=== PATIENT | female | born 1945 | race Caucasian/White ===

== ENCOUNTER 2018-04-22 06:54 | Day surgery (SDC) | payer MEDICARE, OTHER ==
--- NOTE | 2018-04-21 09:34 | HP ---
HISTORY OF PRESENT ILLNESS: The patient is a 72-year-old female who has a 1.5 year history of proble ms with her left knee, which developed after falling while carrying a pot and tripping over a water h ose. She has pain with walking and swelling and difficulty with activities. She has had persistent symptoms despite rest, restriction of activities, anti-inflammatory medications and 2 previous inject ions. The pain is now interfering with day-to-day activities including walking and getting dressed. PAST MEDICAL HISTORY: The patient has a history of hypertension, diabetes, reflux, coronary artery d isease, venous insufficiency and urinary continence. CURRENT MEDICATIONS: Include multivitamins, omeprazole, lisinopril, simvastatin, metformin, amlodipi ne, levothyroxine, alprazolam, Myrbetriq. ALLERGIES: She is allergic to VESICARE. FAMILY HISTORY/SOCIAL HISTORY/REVIEW OF SYSTEMS: Otherwise unremarkable. PHYSICAL EXAMINATION: GENERAL: Reveals a healthy female. HEENT: Unremarkable. NECK: Supple. CHEST: Clear. HEART: Regular rate and rhythm. ABDOMEN: Soft, nontender. PELVIC/RECTAL/BREAST: Exams are deferred. EXTREMITIES: Pertinent findings are to the left knee. There is no effusion or erythema. There is n ormal alignment. There is tenderness over the medial joint line. Range of motion is 0-120 degrees. There is no instability. There are palpable distal pulses. Neurovascular exam is intact. There is no pain with range of motion of the left hip. LABORATORY AND X-RAY FINDINGS: X-rays of the left knee reveal mild degenerative changes. There is g ood joint space remaining. MRI scan of the left knee reveals mild degenerative changes and a tear in volving the posterior horn of the medial meniscus. IMPRESSION: Internal derangement, left knee with medial meniscal tear, possible component of degener ative joint disease. PLAN: Arthroscopy left knee with partial medial meniscectomy and/or debridement and shaving. The na ture of the surgery, length of recovery, and potential complications such as infection, loss of motio n, incomplete relief, thromboembolic phenomenon, neurovascular injury, recurrent tear, post-traumatic degenerative arthritis, and need for additional treatment or repeat surgery have been discussed in d etail.
[2018-04-21 15:41] VITALS: BMI 33.3
[2018-04-22 08:24] LABS: #Basophils 0.1 thou/uL (0.0-0.2); #Eosinphils 0.2 thou/uL (0.0-0.7); #Lymphocytes 3.4 thou/uL (1.20-3.40); #Monocytes 0.9 thou/uL (0.11-0.59); #Neutrophils 5.2 thou/uL (1.40-6.50); %Basophils 0.6 % (0.0-1.0); %Eosinophils 2.5 % (0.0-10.0); %Lymphocytes 34.3 % (21.0-51.0); %Neutrophils 53.6 % (42.0-75.0); Hemoglobin 12.6 g/dL (12.0-16.0); Mean Corpuscular HGB CONC 33.8 g/dL (32.0-36.0); Mean Corpuscular Hemoglobin 32.1 pg (27.0-31.0); Mean Platelet Volume 7.6 fL (7.4-10.4); Platelet Count 222 thou/uL (130-400); RBC Distribution Width 12.5 % (11.5-14.5); Red Blood Cell (RBC) Count 3.93 mill/uL (4.20-5.40); White Blood Cell (WBC) Count 9.8 thou/uL (4.8-10.8)
[2018-04-22 08:35] LABS: Anion Gap 14 mmol/L (10-20); BUN (Urea Nitrogen) 21 mg/dL (9.8-20.1); Calc. Creatinine Clearance 77 mL/min (70-130); Calcium 9.1 mg/dL (7.8-10.44); Carbon Dioxide 22 mmol/L (23-31); Chloride 110 mmol/L (98-107); Estimated GFR-MDRD 72; Glucose 144 mg/dL (83-110); Potassium 4.3 mmol/L (3.5-5.1); Sodium 142 mmol/L (136-145)
[2018-04-22] MEDS ORDERED: Fentanyl 100 MCG/2 ML VIAL ONE ×2 (08:39→10:03)
[2018-04-22] MEDS ORDERED: Bupivacaine HCl 0.5%/Epinephrine 1:200,000/PF 30 ml Vial ONE (08:52)
--- NOTE | 2018-04-22 10:21 | OP ---
DATE OF PROCEDURE: 04/22/2018 SURGEON: Denys Cassidy M.D. ANESTHESIA: General. PREOPERATIVE DIAGNOSIS: Medial meniscal tear, left knee. POSTOPERATIVE DIAGNOSES: Medial meniscal tear, left knee, plus lateral meniscal tear, left knee. PROCEDURE: Arthroscopy of left knee with partial medial and lateral meniscectomies. OPERATIVE FINDINGS: Examination under anesthesia revealed the knee to be stable. At arthroscopy, th ere was very mild tricompartmental degenerative change, but no areas of needing shaving. There was a complex tear of the posterior horn of the medial meniscus. There was also diffuse fraying and a few free margin of the lateral meniscus and a small horizontal tear of the mid aspect of the meniscus, b ut the bulk of the meniscus was intact. NARRATIVE REPORT: After satisfactory anesthesia was induced in supine position, the patient was plac ed in a leg young and prepped and draped in routine manner. Left leg was elevated, exsanguinated wi th an Esmarch bandage, and the tourniquet inflated to 300 mmHg. [place] arthroscope was introduced i n anterolateral portal, probe through an anteromedial portal, and inflow and outflow accomplished thr ough the scope using the [employer] arthroscopy pump. Arthroscopy was carried out and the above finding s were noted. All findings were documented with the video printer and hard copies were made. Manager Core ior horn of the medial meniscus was debrided with use of basket forceps and motorized shaver. Interm ittently, instruments and scope were interchanged between the anteromedial and anterolateral portals for best visualization. The tear was saucerized and balanced and probed and found to be stable. The re was still intact rim of 3-4 mm. The lateral meniscus was debrided with the use of a motorized sha diego and fraying and a small tear ellipsed and remaining bulk of the meniscus probed and found to be s table. The knee was then copiously irrigated through the scope and all instruments were then withdra wn. Twenty mL of 0.5% Marcaine with epinephrine was injected into the knee joint, an additional 10 m L injected about the portal sites. The portal sites were closed with 3-0 nylon. A sterile bulky com pressive dressing was applied and the tourniquet deflated after 21 minutes. The foot promptly pinked up. The patient was awakened and taken to recovery room in stable condition. There were no apparen t intraoperative complications. The estimated blood loss was negligible. The patient will be discharged home in satisfactory condition. Instructed on ice, elevation, use of crutches or walker, and home exercise program by the Physical Therapy Department. She was given writ ten wound care instructions and a prescription for [place] 5 for pain, 40 tablets. She will be recheck ed in my office in 10-14 days or sooner if there any problems prior to that time.
[2018-04-22] MEDS ORDERED: Ondansetron HCl/PF 4 MG/2 ML Vial IVP PRN (10:28)
[2018-04-22] MEDS ORDERED: HYDROmorphone 2 MG/ML VIAL SLOW IVP PRN (10:28)
[2018-04-22] MEDS ORDERED: Promethazine HCl 25 MG/ML VIAL IM/IV PRN (10:28)
[2018-04-22] MEDS ORDERED: Non-Formulary Medication 1 EACH PO PRN (10:28)
[2018-04-22] MEDS ORDERED: HYDROcodone/Acetaminophen 5/325 mg Tablet ONE (12:06)
[2018-04-22] MEDS ORDERED: PROPOFOL 200 MG/20 ML VIAL ONE (15:49)
[2018-04-22] MEDS ORDERED: Dexamethasone 20 MG/5 ML VIAL ONE (15:49)
[2018-04-22] MEDS ORDERED: Lidocaine 1% PF 5 ML VIAL ONE (15:49)
[2018-04-22] MEDS ORDERED: Ondansetron HCl/PF 4 MG/2 ML Vial ONE (15:49)
== END 2018-04-22 12:25 | disposition home or self-care (01) ==
LOC: SDC 06:54
PROVIDERS: ATTEND Orthopaedic Surgery
PROC: 0SBD4ZZ Excision of Left Knee Joint, Percutaneous Endoscopic Approach (ICD-10-PCS; principal; 2018-04-22)
PROC: 0SBD4ZZ Excision of Left Knee Joint, Percutaneous Endoscopic Approach (ICD-10-PCS; 2018-04-22)
DX: S83.232A Complex tear of medial meniscus, current injury, left knee, initial encounter (principal); S83.282A Other tear of lateral meniscus, current injury, left knee, initial encounter; I10 Essential (primary) hypertension; I25.10 Atherosclerotic heart disease of native coronary artery without angina pectoris; E11.9 Type 2 diabetes mellitus without complications; K21.9 Gastro-esophageal reflux disease without esophagitis; Z88.8 Allergy status to other drugs, medicaments and biological substances; Z79.899 Other long term (current) drug therapy; W19.XXXA Unspecified fall, initial encounter
CPT/HCPCS: 29880; 80048; 85025; 93005; 96374; 97116; 97139; G8978; G8979; G8980; 93010; J0670; J1100; J2001; J2405; J2704; J3010

== ENCOUNTER 2018-05-25 11:16 | Outpatient (CLI) | payer MEDICARE, OTHER | END 2018-05-25 11:17 | disposition home or self-care (01) | LOC: BICMAMMO 11:16 | PROVIDERS: ATTEND Family Medicine | DX: Z12.31 Encounter for screening mammogram for malignant neoplasm of breast (principal); R92.1 Mammographic calcification found on diagnostic imaging of breast; Z80.3 Family history of malignant neoplasm of breast | CPT/HCPCS: 77063; 77067 ==

== ENCOUNTER 2019-05-31 10:16 | Outpatient (CLI) | payer MEDICARE, OTHER ==
--- NOTE | 2019-05-31 14:08 | MMO ---
Bilateral MAMMO Bilat Screen [facility]. CLINICAL HISTORY: Patient is 73 years old and is seen for screening. The patient has no personal history of cancer. VIEWS: The views performed were: bilateral craniocaudal with tomosynthesis and bilateral mediolateral oblique with tomosynthesis. FILMS COMPARED: The present examination has been compared to prior imaging studies performed at [facility] on 05/12/2015, 05/13/2016, 05/23/2017 and 05/25/2018. MAMMOGRAM FINDINGS: There are scattered fibroglandular densities. Benign calcifications are noted bilaterally. There are no suspicious masses, suspicious calcifications, or new areas of architectural distortion. IMPRESSION: THERE IS NO MAMMOGRAPHIC EVIDENCE OF MALIGNANCY. A ROUTINE FOLLOW-UP MAMMOGRAM IN 1 YEAR IS RECOMMENDED. THE RESULTS OF THIS EXAM WERE SENT TO THE PATIENT. ACR BI-RADS Category 2 - Benign finding MAMMOGRAPHY NOTE: 1. A negative mammogram report should not delay a biopsy if a dominant of clinically suspicious mass is present. 2. Approximately 10% to 15% of breast cancers are not detected by mammography. 3. Adenosis and dense breasts may obscure an underlying neoplasm. Reported by: PEYTON ROBERTS MD Electonically Signed: [id number]
== END 2019-05-31 10:17 | disposition home or self-care (01) ==
LOC: BICMAMMO 10:16
PROVIDERS: ATTEND Family Medicine
DX: Z12.31 Encounter for screening mammogram for malignant neoplasm of breast (principal)
CPT/HCPCS: 77063; 77067

== ENCOUNTER 2019-07-01 08:17 | Outpatient (CLI) | payer MEDICARE, OTHER ==
--- NOTE | 2019-07-01 10:30 | CT ---
CT ABDOMEN PELVIS WITH ORAL AND IV CONTRAST: History: Right sided abdominal pain radiating to the pelvis. FINDINGS: There is a calcified granuloma at the right lung base. The liver, spleen, pancreas, and adrenal gland s are normal. No calcific gallstones are seen. No calculi are seen in the kidneys, ureters, or urinary bladder. No hydroureter necrosis is noted on either side. There is normal contrast distribution into the ureters and urinary bladder. There is a 5 mm low density lesion in the left posterior renal cortex, too small to characterize, lik reilly cyst. No free air, free fluid, or lymphadenopathy is seen in the abdomen or pelvis. The small bowel loops a re not abnormally dilated. There are vascular calcifications without evidence of aneurysmal dilatatio n of the abdominal aorta. There are degenerative changes in the spine. The patient is post appendectomy and hysterectomy. IMPRESSION: 1. No CT evidence of urinary tract calculi or obstruction. 2. Probable tiny left renal cyst. POS: TPC
[2019-07-01] MEDS ORDERED: Iopamidol 370 76% 100 ML VIAL ONE (15:59)
== END 2019-07-01 08:18 | disposition home or self-care (01) ==
LOC: CT 08:17
PROVIDERS: ATTEND Family Medicine
DX: R10.9 Unspecified abdominal pain (principal)
CPT/HCPCS: 74178; 82565

== ENCOUNTER 2019-07-29 09:32 | Emergency (ER) | payer MEDICARE, OTHER ==
[2019-07-29] MEDS ORDERED: Morphine 4 MG/ML VIAL ONE (10:42)
== END 2019-07-29 11:05 | disposition home or self-care (01) ==
LOC: ERS 09:32
DX: B02.9 Zoster without complications (principal); E11.9 Type 2 diabetes mellitus without complications; I10 Essential (primary) hypertension; Z79.899 Other long term (current) drug therapy
CPT/HCPCS: 96374; J2270

== ENCOUNTER 2019-08-05 14:22 | Inpatient (IN) | payer MEDICARE, OTHER ==
--- NOTE | 2019-08-05 15:21 | RAD ---
XR Chest 1 View Portable History: Pain Comparison: Radiograph 2012 Findings: Lungs are hypoinflated. There are bibasilar airspace opacities. No pneumothorax. No effusio n. No acute osseous abnormality. Impression: Lung hypoinflation with bibasilar atelectatic change. 2 views in full inspiration recomme nded if clinically warranted.
[2019-08-05 15:24] LABS: #Basophils 0.1 thou/uL (0.0-0.2); #Eosinphils 0.1 thou/uL (0.0-0.7); #Lymphocytes 3.7 thou/uL (1.20-3.40); #Monocytes 0.9 thou/uL (0.11-0.59); %Basophils 0.7 % (0.0-1.0); %Eosinophils 0.7 % (0.0-10.0); %Lymphocytes 31.8 % (21.0-51.0); %Monocytes 7.6 % (0.0-10.0); %Neutrophils 59.2 % (42.0-75.0); Mean Corpuscular HGB CONC 34.3 g/dL (32.0-36.0); Mean Corpuscular Hemoglobin 32.1 pg (27.0-31.0); Mean Corpuscular Volume 93.6 fL (78.0-98.0); Mean Platelet Volume 7.7 fL (7.4-10.4); Platelet Count 300 thou/uL (130-400); RBC Distribution Width 12.7 % (11.5-14.5); Red Blood Cell (RBC) Count 4.04 mill/uL (4.20-5.40); White Blood Cell (WBC) Count 11.8 thou/uL (4.8-10.8)
[2019-08-05 15:45] LABS: ALT (SGPT) 14 U/L (8-55); AST (SGOT) 12 U/L (5-34); Albumin 3.9 g/dL (3.4-4.8); Alkaline Phosphatase 84 U/L (40-150); Anion Gap 11 mmol/L (10-20); BUN (Urea Nitrogen) 34 mg/dL (9.8-20.1); Bilirubin, Total 0.3 mg/dL (0.2-1.2); Calc. Creatinine Clearance 0 mL/min (70-130); Calcium 9.4 mg/dL (7.8-10.44); Carbon Dioxide 21 mmol/L (23-31); Chloride 110 mmol/L (98-107); Estimated GFR-MDRD 48; Globulin 3.3 g/dL (2.4-3.5); Glucose 146 mg/dL (83-110); Potassium 4.1 mmol/L (3.5-5.1); Protein, Total 7.2 g/dL (6.0-8.3); Sodium 138 mmol/L (136-145)
[2019-08-05 16:14] LABS: CKMB 1.1 ng/mL (0-6.6)
[2019-08-05] MEDS ORDERED: Morphine 2 MG/ML SYRINGE SLOW IVP SCH (18:15)
[2019-08-05] MEDS ORDERED: HumaLOG 300 UNITS/3 ML VIAL SC PRN ×2 (18:15)
[2019-08-05] MEDS ORDERED: Ondansetron PF 4 MG/2 ML Vial IVP PRN (18:15)
[2019-08-05] MEDS ORDERED: Dextrose 5% in Water 1,000 ML IV PRN (18:15)
[2019-08-05] MEDS ORDERED: Dextrose 50% Abboject 50 ML SYRINGE SLOW IVP PRN (18:15)
[2019-08-05] MEDS ORDERED: Ondansetron ODT 4 MG TAB PO PRN (18:15)
--- NOTE | 2019-08-05 18:33 | PDOC.HHP ---
Hospitalist HPI - History of Present Illness Chest pain History of Present Illness: Patient recently diagnosed with shingles and returns due to severe pain that began yesterday evening. She has some pain on the right side of her chest as well and states it is also severe, 10/10. Patient is grabbing at both breasts. States pain is 10/10 on the left side of her back wrapping around to the left side with an associated rash. She tried taking aspirin for the pain at home as well as the Tylenol #3 with no relief. The pain radiates to the epigastric region and up her chest. When severe it takes her breath away but she denies any shortness of breath. States since all this started she has felt gradually worse overall and has had a decreased appetite with a weight loss of 5 lbs in the last couple of weeks. Denies any nausea or vomiting. States she first presented to her primary care physician with itching in that area but at that time did not have pain or the rash. She was told it was nothing and then she came in to the ER on 07/31 and was diagnosed with shingles. Given a prescription for Tylenol #3 and Acyclovir which she began yesterday. ALLERGIES: No known drug allergies CURRENT MEDICATIONS: 1. Tylenol with Codeine. 2. Acyclovir. 3. ProAir HFA. 4. Metformin. 5. Valacyclovir. ED Course: Referred for ACS rule out. EKG in ER showed normal sinus, HR [address] changes or T wave abnormalities. Initial troponin indeterminate at 0.031. She had labs indicating an ARLYN. Given 1 L normal saline. Hospitalist ROS - Review of Systems Constitutional: reports: malaise. denies: fever, chills, sweats, weakness, other Eyes: denies: pain, vision change, conjunctivae inflammation, eyelid inflammation, redness, other ENT: denies: ear pain, ear discharge, nose pain, nose discharge, nose congestion , mouth pain, mouth swelling, throat pain, throat swelling, other Respiratory: reports: shortness of breath (when her pain is severe, she describes tightness with her breathing.). denies: cough, dry, hemoptysis, SOB with excertion, pleuritic pain, sputum, wheezing Cardiovascular: reports: chest pain (left back/lateral chest pain along T3-T5 dermatomes across her left breast to sternum Right lateral chest pain) Gastrointestinal: reports: nausea. denies: vomiting, abdominal pain, diarrhea, constipation, melena, hematochezia, other Genitourinary: denies: dysuria, frequency, incontinence, hematuria, retention, other Musculoskeletal: reports: back pain (left upper back (T3-5)) Skin: reports: rash (erythematous rash along T3-T5 left dermatomes, open/dried blisters on back, skin desquamation under the left breast) Neurological: denies: weakness, numbness, incoordination, change in speech, confusion, seizures, other Hospitalist History - Past Medical History Source: patient Cardiac: reports: HTN, Hyperlipidemia Pulmonary: reports: asthma Infectious Disease: reports: Herpes zoster Endocrine: reports: Diabetes - Past Surgical History Past Surgical History: reports: Appendectomy, Hysterectomy, Hernia Repair - Family History Family History: reports: no pertinent history - Social History Smoking Status: Never smoker Alcohol: reports: None Drugs: reports: none Living Situation: With Family Domestic Violence: Negative Activity level: independent ambulation - Exam General Appearance: awake alert General - other findings: Appears to be in discomfort, grabbing/massaging both of her breasts Eye: PERRL, anicteric sclera ENT: normocephalic atraumatic, no oropharyngeal lesions, moist mucosa Neck: supple, symmetric, no lymphadenopathy Heart: RRR, no murmur, no gallops, no rubs Respiratory: CTAB, no wheezes, no rales, no ronchi, normal chest expansion, no tachypnea Gastrointestinal: soft, non-tender, non-distended, normal bowel sounds, no palpable masses, no hepatomegaly, no splenomegaly, no guarding, no rigidity Extremities: no cyanosis, no clubbing, no edema Skin: normal turgor, no lesions, no rashes Skin - other findings: erythematous rash T3-T5 left dermatomes, open/dried blisters on back Musculoskeletal: normal tone, normal strength, no muscle wasting Psychiatric: normal affect, normal behavior, A&O x 3 Hospitalist Results - Labs Result Diagrams: 08/05/19 15:15 08/05/19 15:15 Lab results: WBC 11.8 thou/uL (4.8-10.8) H 08/05/19 15:15 Hgb 13.0 g/dL (12.0-16.0) 08/05/19 15:15 Hct 37.8 % (36.0-47.0) 08/05/19 15:15 MCV 93.6 fL (78.0-98.0) 08/05/19 15:15 Plt Count 300 thou/uL (130-400) 08/05/19 15:15 Neutrophils % 59.2 % (42.0-75.0) 08/05/19 15:15 Sodium 138 mmol/L (136-145) 08/05/19 15:15 Potassium 4.1 mmol/L (3.5-5.1) 08/05/19 15:15 Chloride 110 mmol/L (98-107) H 08/05/19 15:15 Carbon Dioxide 21 mmol/L (23-31) L 08/05/19 15:15 BUN 34 mg/dL (9.8-20.1) H 08/05/19 15:15 Creatinine 1.12 mg/dL (0.6-1.1) H 08/05/19 15:15 Glucose 146 mg/dL (83-110) H 08/05/19 15:15 Calcium 9.4 mg/dL (7.8-10.44) 08/05/19 15:15 Total Bilirubin 0.3 mg/dL (0.2-1.2) 08/05/19 15:15 AST 12 U/L (5-34) 08/05/19 15:15 ALT 14 U/L (8-55) 08/05/19 15:15 Alkaline Phosphatase 84 U/L (40-150) 08/05/19 15:15 CK-MB (CK-2) 1.1 ng/mL (0-6.6) 08/05/19 15:15 Troponin I 0.031 ng/mL (< 0.028) H 08/05/19 15:15 B-Natriuretic Peptide 17.1 pg/mL (0-100) 08/05/19 15:15 Serum Total Protein 7.2 g/dL (6.0-8.3) 08/05/19 15:15 Albumin 3.9 g/dL (3.4-4.8) 08/05/19 15:15 - Radiology Interpretation Chest x-ray Status: report reviewed by me (No acute intrathoracic abnormalities.) Hospitalist H&P A/P - Problem (1) Chest pain Code(s): R07.9 - CHEST PAIN, UNSPECIFIED Status: Acute (2) Herpes zoster Code(s): B02.9 - ZOSTER WITHOUT COMPLICATIONS Status: Acute (3) ARLYN (acute kidney injury) Code(s): N17.9 - ACUTE KIDNEY FAILURE, UNSPECIFIED Status: Acute (4) Hypertension Code(s): I10 - ESSENTIAL (PRIMARY) HYPERTENSION Status: Acute (5) Diabetes mellitus Code(s): E11.9 - TYPE 2 DIABETES MELLITUS WITHOUT COMPLICATIONS Status: Acute (6) Hyperlipidemia Code(s): E78.5 - HYPERLIPIDEMIA, UNSPECIFIED Status: Acute - Plan Plan: - Continuous cardiac monitoring and will continue to trend troponins. - Chest pain likely muscular/neuropathic in nature due to herpes zoster. - Continue Acyclovir, will give a dose of morphine for pain 2 mg IV x 1. - Wound care, given skin desquamation under breast, risk for secondary infection. - Continue IV fluids and monitor renal function. - Resume home BP meds once verified and monitor BP. - Insulin sliding scale and monitor glucose, hold Metformin given ARLYN. CODE STATUS: FULL, surrogate decision maker is her , Fernando Orta.
[2019-08-05] MEDS ORDERED: hydrALAZINE 20 MG/ML VIAL SLOW IVP PRN (19:02)
[2019-08-05 19:43] LABS: Troponin I Less than 0.010 ng/mL (< 0.028)
[2019-08-05 20:17] VITALS: BMI 32.5
[2019-08-05] MEDS ORDERED: Famotidine/PF 20 mg/2ml Vial SLOW IVP SCH (21:00)
[2019-08-05] MEDS: Sodium Chloride 0.9% 1,000 ML IV SCH (21:18)
[2019-08-05 22:48] LABS: Troponin I Less than 0.010 ng/mL (< 0.028)
[2019-08-06] MEDS ORDERED: Melatonin 3 MG TAB PO PRN (00:45)
[2019-08-06] MEDS ORDERED: Lanolin Ointment 7 GM TUBE TOP PRN (00:48)
[2019-08-06] MEDS ORDERED: PROVENTIL INHALER 6.7 G (200 INHALATIONS) INH PRN (03:57)
[2019-08-06 05:13] LABS: #Basophils 0.1 thou/uL (0.0-0.2); #Eosinphils 0.1 thou/uL (0.0-0.7); #Lymphocytes 3.7 thou/uL (1.20-3.40); #Monocytes 0.9 thou/uL (0.11-0.59); #Neutrophils 6.8 thou/uL (1.40-6.50); %Basophils 0.9 % (0.0-1.0); %Eosinophils 0.9 % (0.0-10.0); %Lymphocytes 31.9 % (21.0-51.0); %Monocytes 7.6 % (0.0-10.0); %Neutrophils 58.8 % (42.0-75.0); Hemoglobin 12.9 g/dL (12.0-16.0); Mean Corpuscular HGB CONC 35.1 g/dL (32.0-36.0); Mean Corpuscular Hemoglobin 32.9 pg (27.0-31.0); Mean Corpuscular Volume 93.7 fL (78.0-98.0); Mean Platelet Volume 8.1 fL (7.4-10.4); Platelet Count 282 thou/uL (130-400); RBC Distribution Width 12.9 % (11.5-14.5); Red Blood Cell (RBC) Count 3.92 mill/uL (4.20-5.40); White Blood Cell (WBC) Count 11.6 thou/uL (4.8-10.8)
[2019-08-06 05:30] LABS: Anion Gap 13 mmol/L (10-20); BUN (Urea Nitrogen) 29 mg/dL (9.8-20.1); Calc. Creatinine Clearance 71 mL/min (70-130); Calcium 9.1 mg/dL (7.8-10.44); Carbon Dioxide 19 mmol/L (23-31); Chloride 114 mmol/L (98-107); Estimated GFR-MDRD 66; Glucose 113 mg/dL (83-110); Sodium 142 mmol/L (136-145)
[2019-08-06] MEDS: Sodium Chloride 0.9% 1,000 ML IV SCH ×2 (05:45→07:45)
[2019-08-06] MEDS ORDERED: Levothyroxine Sodium 88 MCG TAB PO SCH (06:00)
[2019-08-06 07:49] VITALS: BP 185/93; TEMP 98.5
[2019-08-06] MEDS ORDERED: Acyclovir 800 mg Tablet PO SCH ×2 (08:00)
[2019-08-06] MEDS ORDERED: Fluticasone/Salmeterol [Wixela 250-50 Inhub] INH SCH (09:00)
[2019-08-06] MEDS ORDERED: Stress 600 With Zinc 1 TAB PO SCH (09:00)
[2019-08-06] MEDS ORDERED: Acetaminophen/Codeine 30-300mg Tablet PO SCH (09:00)
[2019-08-06] MEDS ORDERED: VITAMIN B COMPLEX VIT C NO 4 PO SCH (09:00)
[2019-08-06] MEDS ORDERED: Non-Formulary Item 1 EACH (Omeprazole [Omeprazole] 40 MG) PO SCH (21:00)
[2019-08-06] MEDS ORDERED: Famotidine/PF 20 mg/2ml Vial SLOW IVP SCH (21:00)
[2019-08-06] MEDS ORDERED: Prevnar 13-Val Conj/PF 0.5 ML SYRINGE IM ONE (21:00)
[2019-08-06] MEDS ORDERED: Atorvastatin Calcium 10 MG TAB PO SCH (21:00)
[2019-08-06] MEDS ORDERED: Non-Formulary Item 1 EACH (Simvastatin [Simvastatin] 20 MG) PO SCH (21:00)
--- NOTE | 2019-08-07 04:23 | DIS ---
DATE OF ADMISSION: 08/05/2019 DATE OF DISCHARGE: 08/06/2019 BRIEF HOSPITAL COURSE: The patient is a 74-year-old female, with recent diagnosis of herpes zoster, presented to the hospital with chest discomfort. She was monitored on telemetry unit. Serial troponins were negative. This morning, the patient signed against medical advice. I was unable to evaluate the patient on the day of discharge. FINAL DIAGNOSES: 1. Chest discomfort. 2. Recent diagnosis of zoster. 3. Acute kidney injury. Creatinine on admission was 1.12, at discharge was 0.84. 4. Diabetes mellitus type 2. 5. Hyperlipidemia. 6. Slightly elevated troponin, probably secondary to demand ischemia/type 2 myocardial infarction. 7. Obesity with a BMI of 32.6. Job ID: [id number]
--- NOTE | 2019-08-10 06:03 | PQF ---
AARON BALLARD MALIK MD [id number] [facility]-292 [id number] CLINICAL DOCUMENTATION CLARIFICATION FORM: POST DISCHARGE Addendum to original discharge summary date: ____ Late entry note date: __ DATE:08-10-2019 ATTN:Quinten Chapman Please exercise your independent, professional judgment in responding to the clarification form. Clinical indicators are provided on the bottom of this form for your review Based on the below indicators can you please specify the etiology of patients chest pain. Please check the appropriate boxes: [ ] Type 2 myocardial infarction [ ] ACS [ x ] Herpes Zoster [ ] other diagnosis please specify [ ] unable to determine Clinical Indicators: ED Notes 08/05 "presents for evaluation of SOB and chest pain" ED Notes 08/05 "labs notable for mild elevation in troponin" HP 08/05 "pain on the right side of her chest as well and states it is also severe, 08/26" HP 08/05 "chest pain likely muscular/neuropathic in nature due to herpes zoster " DS 08/05 "slightly elevated troponin, probably secondary to demand ischemia/ type 2 GA" HP 08/05 "referred for ACS rule out" Risk Factors: ED Notes 08/05 - HTN ED Notes 08/05 - HLD DS 08/05 - 72 years old female DS 08/05 - Herpes Zoster DS 08/05 - ARLYN DS 08/05 - Obesity DS 08/05 - type 2 GA Treatment: Collected - Chest Xray HP 08/05 - IVF HP 08/05 - Continous cardiac monitoring JAN 23 - Morphine 2mg IV JAN 23 - Atorvastatin 10mg Oral (This form is maintained as a part of the permanent medical record) 2014 [email or web address]. All Rights Reserved Kira [email or web address] [not provided] MTDD
== END 2019-08-06 11:25 | disposition left against medical advice (07) | DRG 595 ==
LOC: ERS 14:22 → 2NO 16:37
PROVIDERS: ADMIT Internal Medicine; ATTEND Internal Medicine
DX: B02.9 Zoster without complications (principal); I21.A1 Myocardial infarction type 2; N17.9 Acute kidney failure, unspecified; E11.9 Type 2 diabetes mellitus without complications; I10 Essential (primary) hypertension; E78.5 Hyperlipidemia, unspecified; J45.909 Unspecified asthma, uncomplicated; E66.9 Obesity, unspecified; Z68.32 Body mass index [BMI] 32.0-32.9, adult; Z90.710 Acquired absence of both cervix and uterus; Z90.49 Acquired absence of other specified parts of digestive tract; Z79.84 Long term (current) use of oral hypoglycemic drugs; Z79.51 Long term (current) use of inhaled steroids; Z79.899 Other long term (current) drug therapy
CPT/HCPCS: 36415; 36416; 71045; 80048; 80053; 82553; 83880; 84484; 85025; 93005; 96360; J0360; J2270; J2405; S0028

== ENCOUNTER 2020-06-05 11:37 | Outpatient (CLI) | payer MEDICARE, OTHER ==
--- NOTE | 2020-06-05 12:39 | MMO ---
Bilateral MAMMO Bilat Screen [facility]. CLINICAL HISTORY: Patient is 74 years old and is seen for screening. The patient has no family history of breast cancer. The patient has no personal history of cancer. VIEWS: The views performed were: bilateral craniocaudal with tomosynthesis and bilateral mediolateral oblique with tomosynthesis. FILMS COMPARED: The present examination has been compared to prior imaging studies performed at [facility] on 05/13/2016, 05/23/2017, 05/25/2018 and 05/31/2019. This study has been interpreted with the assistance of computer-aided detection. MAMMOGRAM FINDINGS: There are scattered fibroglandular densities. There are stable benign appearing calcifications seen in both breasts. There are also vascular calcifications. There are no suspicious masses, suspicious calcifications, or new areas of architectural distortion. IMPRESSION: THERE IS NO MAMMOGRAPHIC EVIDENCE OF MALIGNANCY. A ROUTINE FOLLOW-UP MAMMOGRAM IN 1 YEAR IS RECOMMENDED. THE RESULTS OF THIS EXAM WERE SENT TO THE PATIENT. ACR BI-RADS Category 2 - Benign finding MAMMOGRAPHY NOTE: 1. A negative mammogram report should not delay a biopsy if a dominant of clinically suspicious mass is present. 2. Approximately 10% to 15% of breast cancers are not detected by mammography. 3. Adenosis and dense breasts may obscure an underlying neoplasm. Reported by: RAGHAV CASON MD Electonically Signed: [id number]
== END 2020-06-05 11:38 | disposition home or self-care (01) ==
LOC: BICMAMMO 11:37
PROVIDERS: ATTEND Family Medicine
DX: Z12.31 Encounter for screening mammogram for malignant neoplasm of breast (principal)
CPT/HCPCS: 77063; 77067

== ENCOUNTER 2021-06-07 10:13 | Outpatient (CLI) | payer MEDICARE, OTHER | END 2021-06-07 10:14 | disposition home or self-care (01) | LOC: BICMAMMO 10:13 | PROVIDERS: ATTEND Family Medicine | DX: Z12.31 Encounter for screening mammogram for malignant neoplasm of breast (principal); Z80.3 Family history of malignant neoplasm of breast | CPT/HCPCS: 77063; 77067 ==

== ENCOUNTER 2022-05-01 08:53 | Outpatient (CLI) | payer MEDICARE, OTHER | END 2022-05-01 08:54 | disposition home or self-care (01) | LOC: BICCT 08:53 | PROVIDERS: ATTEND Physician Assistant Medical | DX: R10.13 Epigastric pain (principal) | CPT/HCPCS: 74160; 82565 ==